=== PATIENT | female | born 1945 | race African-American/Black ===

== ENCOUNTER 2017-04-21 15:03 | Outpatient (CLI) | payer MEDICARE, MEDICAID | END 2017-04-21 15:04 | disposition home or self-care (01) | LOC: BICMAMMO 15:03 | PROVIDERS: ATTEND Internal Medicine | DX: Z12.31 Encounter for screening mammogram for malignant neoplasm of breast (principal); R92.1 Mammographic calcification found on diagnostic imaging of breast | CPT/HCPCS: 77063; 77067 ==

== ENCOUNTER 2017-10-04 13:17 | Emergency (ER) | payer MEDICARE, MEDICAID | END 2017-10-04 14:45 | disposition home or self-care (01) | LOC: ERS 13:17 | DX: T63.481A Toxic effect of venom of other arthropod, accidental (unintentional), initial encounter (principal); E11.9 Type 2 diabetes mellitus without complications; E78.5 Hyperlipidemia, unspecified; I10 Essential (primary) hypertension | CPT/HCPCS: 99282 ==

== ENCOUNTER 2017-12-11 13:49 | Outpatient (CLI) | payer MEDICARE, MEDICAID ==
--- NOTE | 2017-12-11 15:49 | RAD ---
LEFT HIP 2 VIEWS: HISTORY: Hip pain. COMPARISON: Comparison is made to hip films of 05/19/2015. FINDINGS: There are mild degenerative changes present which appear stable from prior exam. There is no evidenc e of acute fracture. No interval change from prior study. 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 No fracture or acute abnormality. POS: [facility]
== END 2017-12-11 13:50 | disposition home or self-care (01) ==
LOC: RAD-FRANK 13:49
PROVIDERS: ATTEND Nurse Practitioner Family
DX: M25.552 Pain in left hip (principal); M16.12 Unilateral primary osteoarthritis, left hip

== ENCOUNTER 2018-03-22 10:19 | Outpatient (CLI) | payer MEDICARE, MEDICAID ==
--- NOTE | 2018-03-22 10:58 | ULT ---
PELVIC ULTRASOUND: History: Pelvic pain. FINDINGS: Real-time imaging of the pelvis was obtained transabdominally. The patient refused an endovaginal exa m. The uterus appears to have been removed. I do not see either right or left ovary. No free fluid or ma ss. IMPRESSION: Post op hysterectomy change. POS: [facility]
== END 2018-03-22 10:20 | disposition home or self-care (01) ==
LOC: BICULT 10:19
PROVIDERS: ATTEND Nurse Practitioner Family
DX: R10.2 Pelvic and perineal pain (principal); Z90.710 Acquired absence of both cervix and uterus
CPT/HCPCS: 76857

== ENCOUNTER 2018-03-29 13:41 | Outpatient (CLI) | payer MEDICARE, MEDICAID ==
--- NOTE | 2018-03-29 14:21 | RAD ---
LEFT LEG TWO VIEWS: History: Left leg pain. FINDINGS/IMPRESSION: The left tibia and fibula are intact. There are degenerative changes in the left knee joint. There ar e plantar calcaneal spurs present. Vascular calcifications are present. POS: [facility]
--- NOTE | 2018-03-29 14:24 | RAD ---
LEFT ANKLE THREE VIEWS: History: Left ankle pain. FINDINGS/IMPRESSION: The ankle mortise is maintained. No fracture, dislocation, or bony destruction is seen. There is a sm all plantar calcaneal spur. POS: [facility]
== END 2018-03-29 13:42 | disposition home or self-care (01) ==
LOC: RAD-FRANK 13:41
PROVIDERS: ATTEND Nurse Practitioner Family
DX: E11.65 Type 2 diabetes mellitus with hyperglycemia (principal); L03.818 Cellulitis of other sites; M79.605 Pain in left leg; M77.32 Calcaneal spur, left foot; M17.12 Unilateral primary osteoarthritis, left knee
CPT/HCPCS: 36415; 80053; 85025

== ENCOUNTER 2018-04-01 08:25 | Emergency (ER) | payer MEDICARE, MEDICAID ==
[2018-04-01 09:03] LABS: Bilirubin Negative (Negative); Blood, Urine Negative (Negative); Clarity CLEAR (Clear); Glucose, Urine (Dipstick) Negative (Negative); Leukocyte Negative (Negative); Nitrite Negative (Negative); Protein, Urine (Dipstick) Negative (Neg-Trace); Specific Gravity, Urine 1.012 (1.002-1.036)
== END 2018-04-01 09:46 | disposition home or self-care (01) ==
LOC: ERS 08:25
DX: M54.6 Pain in thoracic spine (principal); E11.9 Type 2 diabetes mellitus without complications; I10 Essential (primary) hypertension; E78.5 Hyperlipidemia, unspecified; Z79.899 Other long term (current) drug therapy; W18.30XA Fall on same level, unspecified, initial encounter
CPT/HCPCS: 81003; 99283

== ENCOUNTER 2018-08-24 14:07 | Emergency (ER) | payer MEDICARE, MEDICAID ==
--- NOTE | 2018-08-24 14:53 | RAD ---
CHEST 1 VIEW: HISTORY: Sternal cyst pain. COMPARISON: Radiograph from 2015. FINDINGS: Lungs are clear. No pneumothorax. No effusion. Multiple midline sternotomy wires with a fracture o f the craniad most wire. No acute osseous abnormality. IMPRESSION: No acute intrathoracic abnormality. POS: [facility]
[2018-08-24] MEDS ORDERED: Acetaminophen 500 MG TAB ONE ×2 (14:54→14:56)
== END 2018-08-24 14:59 | disposition home or self-care (01) ==
LOC: ERS 14:07
DX: S20.211A Contusion of right front wall of thorax, initial encounter (principal); I10 Essential (primary) hypertension; E11.9 Type 2 diabetes mellitus without complications; E78.5 Hyperlipidemia, unspecified; W18.30XA Fall on same level, unspecified, initial encounter; Z79.899 Other long term (current) drug therapy; Z79.01 Long term (current) use of anticoagulants; Z79.82 Long term (current) use of aspirin
CPT/HCPCS: 71045

== ENCOUNTER 2018-11-30 16:18 | Emergency (ER) | payer OTHER, MEDICARE, MEDICAID ==
[2018-11-30] MEDS ORDERED: Diazepam 2 MG TAB PO SCH (17:00)
== END 2018-11-30 17:46 | disposition home or self-care (01) ==
LOC: ERS 16:18
DX: S16.1XXA Strain of muscle, fascia and tendon at neck level, initial encounter (principal); M62.830 Muscle spasm of back; E11.9 Type 2 diabetes mellitus without complications; E78.5 Hyperlipidemia, unspecified; I10 Essential (primary) hypertension; Z79.899 Other long term (current) drug therapy; Z79.82 Long term (current) use of aspirin; X50.9XXA Other and unspecified overexertion or strenuous movements or postures, initial encounter
CPT/HCPCS: 99283

== ENCOUNTER 2018-12-25 13:43 | Outpatient (CLI) | payer MEDICARE, MEDICAID ==
--- NOTE | 2018-12-25 14:30 | MMO ---
Bilateral MAMMO Bilat Screen [facility]. CLINICAL HISTORY: Patient is 73 years old and is seen for screening. The patient has no family history of breast cancer. The patient has no personal history of cancer. VIEWS: The views performed were: bilateral craniocaudal with tomosynthesis and bilateral mediolateral oblique with tomosynthesis. FILMS COMPARED: The present examination has been compared to prior imaging studies performed at [facility] on 08/08/2013, 09/03/2014, 10/06/2014 and 04/21/2017. This study has been interpreted with the assistance of computer-aided detection. MAMMOGRAM FINDINGS: There are scattered fibroglandular densities. There are stable benign appearing calcifications seen in both breasts. There are also vascular calcifications. There are no suspicious masses, suspicious calcifications, or new areas of architectural distortion. IMPRESSION: THERE IS NO MAMMOGRAPHIC EVIDENCE OF MALIGNANCY. A ROUTINE FOLLOW-UP MAMMOGRAM IN 1 YEAR IS RECOMMENDED. THE RESULTS OF THIS EXAM WERE SENT TO THE PATIENT. ACR BI-RADS Category 2 - Benign finding MAMMOGRAPHY NOTE: 1. A negative mammogram report should not delay a biopsy if a dominant of clinically suspicious mass is present. 2. Approximately 10% to 15% of breast cancers are not detected by mammography. 3. Adenosis and dense breasts may obscure an underlying neoplasm. Reported by: WILLIAM MEZA MD Electonically Signed: [id number]
== END 2018-12-25 13:44 | disposition home or self-care (01) ==
LOC: BICMAMMO 13:43
PROVIDERS: ATTEND Nurse Practitioner Family
DX: Z12.31 Encounter for screening mammogram for malignant neoplasm of breast (principal)
CPT/HCPCS: 77063; 77067

== ENCOUNTER 2020-02-11 13:50 | Outpatient (CLI) | payer MEDICARE, MEDICAID ==
--- NOTE | 2020-02-11 14:35 | BD ---
DEXA BONE DENSITY SCAN: DATE: 02/11/2020. COMPARISON: None. HISTORY: Postmenopausal female undergoing screening for osteoporosis. Lumbar Spine: BMD (g/cm2) L1 0.902 T-Score: -0.8 L2 0.921 T-Score: -1.0 L3 1.156 T-Score: 0.7 L4 1.064 T-Score: 0.0 L1-L4 1.013 T-Score: -0.3 Femoral Neck: 0.754 T-Score: -0.9 Total Femur: 0.892 T-Score: -0.4. FRAX-WHO fracture risk assessment tool is not reported as all T-scores are at or above -1.0 IMPRESSION: Normal bone mineral density exam. Transcribed Date/Time: 02/11/2020 2:48 PM
--- NOTE | 2020-02-11 15:16 | MMO ---
Bilateral MAMMO Bilat Screen [facility]. CLINICAL HISTORY: Patient is 74 years old and is seen for screening. The patient has no family history of breast cancer. The patient has no personal history of cancer. VIEWS: The views performed were: bilateral craniocaudal with tomosynthesis and bilateral mediolateral oblique with tomosynthesis. FILMS COMPARED: The present examination has been compared to prior imaging studies performed at [facility] on 09/03/2014, 10/06/2014, 04/21/2017 and 12/25/2018. This study has been interpreted with the assistance of computer-aided detection. MAMMOGRAM FINDINGS: There are scattered fibroglandular densities. There are stable calcifications seen in both breasts. There are no suspicious masses, suspicious calcifications, or new areas of architectural distortion. IMPRESSION: THERE IS NO MAMMOGRAPHIC EVIDENCE OF MALIGNANCY. A ROUTINE FOLLOW-UP MAMMOGRAM IN 1 YEAR IS RECOMMENDED. THE RESULTS OF THIS EXAM WERE SENT TO THE PATIENT. ACR BI-RADS Category 2 - Benign finding MAMMOGRAPHY NOTE: 1. A negative mammogram report should not delay a biopsy if a dominant of clinically suspicious mass is present. 2. Approximately 10% to 15% of breast cancers are not detected by mammography. 3. Adenosis and dense breasts may obscure an underlying neoplasm. Reported by: BERNY PEREZ MD Electonically Signed: [id number]
== END 2020-02-11 13:51 | disposition home or self-care (01) ==
LOC: BICMAMMO 13:50
PROVIDERS: ATTEND Nurse Practitioner Family
DX: Z12.31 Encounter for screening mammogram for malignant neoplasm of breast (principal); Z13.820 Encounter for screening for osteoporosis; Z78.0 Asymptomatic menopausal state; M85.88 Other specified disorders of bone density and structure, other site
CPT/HCPCS: 77063; 77067; 77080

== ENCOUNTER 2020-05-14 10:50 | Outpatient (CLI) | payer MEDICARE, MEDICAID | END 2020-05-14 10:51 | disposition home or self-care (01) | LOC: RAD-FRANK 10:50 | PROVIDERS: ATTEND Nurse Practitioner Family | DX: M25.551 Pain in right hip (principal); R10.2 Pelvic and perineal pain; M16.11 Unilateral primary osteoarthritis, right hip | CPT/HCPCS: 72170 ==

== ENCOUNTER 2020-10-02 14:49 | Outpatient (CLI) | payer MEDICARE, MEDICAID | END 2020-10-02 14:50 | disposition home or self-care (01) | LOC: BICCT 14:49 | PROVIDERS: ATTEND Nurse Practitioner Family | DX: E11.22 Type 2 diabetes mellitus with diabetic chronic kidney disease (principal); R10.2 Pelvic and perineal pain; E78.5 Hyperlipidemia, unspecified; W19.XXXA Unspecified fall, initial encounter; Z79.4 Long term (current) use of insulin | CPT/HCPCS: 72192 ==

== ENCOUNTER 2021-01-26 14:11 | Outpatient (CLI) | payer MEDICARE, MEDICAID | END 2021-01-26 14:12 | disposition home or self-care (01) | LOC: BICRAD 14:11 | PROVIDERS: ATTEND Nurse Practitioner Family | DX: M25.562 Pain in left knee (principal); M25.552 Pain in left hip; I12.9 Hypertensive chronic kidney disease with stage 1 through stage 4 chronic kidney disease, or unspecified chronic kidney disease; E11.22 Type 2 diabetes mellitus with diabetic chronic kidney disease; N18.9 Chronic kidney disease, unspecified; M51.16 Intervertebral disc disorders with radiculopathy, lumbar region; M53.9 Dorsopathy, unspecified; E78.5 Hyperlipidemia, unspecified; M16.12 Unilateral primary osteoarthritis, left hip; Z95.1 Presence of aortocoronary bypass graft; Z79.4 Long term (current) use of insulin | CPT/HCPCS: 36415; 80053; 81001; 83036; 84443; 85025; 87086 ==

== ENCOUNTER 2021-02-01 12:30 | Outpatient (CLI) | payer MEDICARE, MEDICAID | END 2021-02-01 12:31 | disposition home or self-care (01) | LOC: TBSIIMAG 12:30 | PROVIDERS: ATTEND Nurse Practitioner Family | DX: M51.16 Intervertebral disc disorders with radiculopathy, lumbar region (principal); M53.9 Dorsopathy, unspecified; M25.552 Pain in left hip; M48.061 Spinal stenosis, lumbar region without neurogenic claudication; M43.16 Spondylolisthesis, lumbar region | CPT/HCPCS: 72148 ==

== ENCOUNTER 2021-02-14 05:52 | Inpatient (IN) | payer MEDICARE, MEDICAID ==
[2021-02-14] MEDS ORDERED: Fentanyl 100 MCG/2 ML VIAL ONE (07:00)
[2021-02-14 07:31] LABS: #Lymphocytes 1.9 thou/uL (1.20-3.40); #Monocytes 0.6 thou/uL (0.11-0.59); #Neutrophils 5.9 thou/uL (1.40-6.50); %Basophils 0.4 % (0.0-1.0); %Eosinophils 0.5 % (0.0-10.0); %Monocytes 6.7 % (0.0-10.0); %Neutrophils 69.4 % (42.0-75.0); Hemoglobin 10.7 g/dL (12.0-16.0); Mean Corpuscular HGB CONC 33.8 g/dL (32.0-36.0); Mean Corpuscular Hemoglobin 29.4 pg (27.0-31.0); Mean Platelet Volume 8.2 fL (7.4-10.4); Platelet Count 219 thou/uL (130-400); RBC Distribution Width 13.3 % (11.5-14.5); Red Blood Cell (RBC) Count 3.64 mill/uL (4.20-5.40); White Blood Cell (WBC) Count 8.4 thou/uL (4.8-10.8)
[2021-02-14 07:51] LABS: ALT (SGPT) 9 U/L (8-55); AST (SGOT) 12 U/L (5-34); Albumin 3.8 g/dL (3.4-4.8); Alkaline Phosphatase 78 U/L (40-110); Anion Gap 11 mmol/L (10-20); BUN (Urea Nitrogen) 20 mg/dL (9.8-20.1); Bilirubin, Total 0.4 mg/dL (0.2-1.2); Calc. Creatinine Clearance 0 mL/min (70-130); Carbon Dioxide 22 mmol/L (23-31); Chloride 107 mmol/L (98-107); Globulin 3.8 g/dL (2.4-3.5); Glucose 198 mg/dL (83-110); Protein, Total 7.6 g/dL (5.8-8.1); Sodium 136 mmol/L (136-145)
[2021-02-14] MEDS ORDERED: Ondansetron PF 4 MG/2 ML Vial IVP PRN ×2 (09:30→09:35)
[2021-02-14] MEDS ORDERED: Ondansetron ODT 4 MG TAB PO PRN ×2 (09:30→09:35)
[2021-02-14] MEDS ORDERED: Dextrose 5% in Water 1,000 ML IV PRN (09:34)
[2021-02-14] MEDS ORDERED: Dextrose 50% Abboject 50 ML SYRINGE SLOW IVP PRN (09:34)
[2021-02-14] MEDS ORDERED: Acetaminophen 325 MG TAB PO PRN (09:35)
[2021-02-14] MEDS ORDERED: Senokot S 8.6-50 MG TAB PO PRN (09:35)
[2021-02-14] MEDS ORDERED: Calcium Carbonate 500 MG ChewTAB PO PRN (09:35)
[2021-02-14] MEDS ORDERED: Sodium Chloride 0.9% 1,000 ML IV SCH ×2 (09:45→11:15)
[2021-02-14 10:56] VITALS: BMI 28.7
[2021-02-14] MEDS ORDERED: Vancomycin 1 GM in Premix Bag 1 BAG IVPB SCH (11:00)
[2021-02-14] MEDS ORDERED: Piperacillin/Tazobactam 3.375 GM in Sodium Chloride 0.9% 100 ML IVPB SCH ×2 (11:00→12:00)
[2021-02-14] MEDS ORDERED: HYDROcodone/Acetaminophen 5/325 mg Tablet PO PRN (11:13)
[2021-02-14] MEDS ORDERED: NPH, Human Insulin Isophane 300 UNIT/3 ML VIAL SC SCH ×2 (11:30→17:00)
[2021-02-14] MEDS: Sodium Chloride 0.9% 1,000 ML IV SCH (12:00)
[2021-02-14] MEDS: Acetaminophen 325 MG TAB PO SCH ×3 (12:04→20:25)
[2021-02-14] MEDS: Insulin Regular 300 UNITS/3 ML VIAL SC PRN ×3 (12:21→20:35)
[2021-02-14] MEDS: Vancomycin 1 GM in Premix Bag 1 BAG IVPB SCH (15:16)
[2021-02-14] MEDS: Piperacillin/Tazobactam 3.375 GM in Sodium Chloride 0.9% 100 ML IVPB SCH (18:04)
[2021-02-14] MEDS: Famotidine 20 MG TAB PO SCH (20:25)
[2021-02-14] MEDS: Rosuvastatin 10 MG TAB PO SCH (20:26)
[2021-02-14] MEDS: Lisinopril 20 MG TAB PO SCH (20:26)
[2021-02-14] MEDS: Carvedilol 25 MG TAB PO SCH (20:26)
[2021-02-14] MEDS: cloNIDine 0.1 MG TAB PO SCH (20:26)
[2021-02-14 23:06] LABS: SARS-CoV-2 PCR by NAA DETECTED (NotDetected)
[2021-02-15] MEDS: Piperacillin/Tazobactam 3.375 GM in Sodium Chloride 0.9% 100 ML IVPB SCH ×4 (00:08→23:23)
[2021-02-15 06:10] LABS: #Basophils 0.1 thou/uL (0.0-0.2); #Eosinphils 0.1 thou/uL (0.0-0.7); #Lymphocytes 2.1 thou/uL (1.20-3.40); #Monocytes 0.7 thou/uL (0.11-0.59); #Neutrophils 2.9 thou/uL (1.40-6.50); %Basophils 1.2 % (0.0-1.0); %Eosinophils 1.3 % (0.0-10.0); %Monocytes 12.5 % (0.0-10.0); Hemoglobin 9.6 g/dL (12.0-16.0); Mean Corpuscular HGB CONC 33.7 g/dL (32.0-36.0); Mean Corpuscular Hemoglobin 29.5 pg (27.0-31.0); Mean Corpuscular Volume 87.7 fL (78.0-98.0); Mean Platelet Volume 8.2 fL (7.4-10.4); Platelet Count 199 thou/uL (130-400); RBC Distribution Width 13.2 % (11.5-14.5); Red Blood Cell (RBC) Count 3.25 mill/uL (4.20-5.40); White Blood Cell (WBC) Count 5.8 thou/uL (4.8-10.8)
[2021-02-15 06:38] LABS: Anion Gap 9 mmol/L (10-20); BUN (Urea Nitrogen) 27 mg/dL (9.8-20.1); Calc. Creatinine Clearance 36 mL/min (70-130); Calcium 9.3 mg/dL (7.8-10.44); Carbon Dioxide 24 mmol/L (23-31); Chloride 109 mmol/L (98-107); Glucose 108 mg/dL (83-110); Potassium 3.7 mmol/L (3.5-5.1); Sodium 138 mmol/L (136-145)
[2021-02-15] MEDS: Famotidine 20 MG TAB PO SCH (08:25)
[2021-02-15] MEDS: Carvedilol 25 MG TAB PO SCH ×2 (08:25→20:55)
[2021-02-15] MEDS: Amlodipine 5 MG TAB PO SCH (08:25)
[2021-02-15] MEDS: Lisinopril 20 MG TAB PO SCH ×2 (08:25→20:55)
[2021-02-15] MEDS: Potassium Chloride 10 MEQ TAB PO SCH (08:25)
[2021-02-15] MEDS: Acetaminophen 325 MG TAB PO SCH ×4 (08:26→20:55)
[2021-02-15] MEDS: Aspirin 325 mg Enteric Coated Tablet PO SCH (08:26)
[2021-02-15] MEDS: NPH, Human Insulin Isophane 300 UNIT/3 ML VIAL SC SCH (08:27)
[2021-02-15] MEDS: Sodium Chloride 0.9% 1,000 ML IV SCH ×2 (08:29→19:12)
[2021-02-15] MEDS: Vancomycin 1 GM in Premix Bag 1 BAG IVPB SCH (12:45)
[2021-02-15] MEDS: Ketorolac Tromethamine 30 MG/ML VIAL IVP SCH ×2 (18:15→23:23)
[2021-02-15] MEDS: Rosuvastatin 10 MG TAB PO SCH (20:54)
[2021-02-15] MEDS: cloNIDine 0.1 MG TAB PO SCH (20:55)
[2021-02-15] MEDS: Insulin Regular 300 UNITS/3 ML VIAL SC PRN (20:56)
[2021-02-15] MEDS ORDERED: Colchicine 0.3 MG TAB PO SCH (21:45)
[2021-02-16] MEDS: Ketorolac Tromethamine 30 MG/ML VIAL IVP SCH ×3 (05:50→17:11)
[2021-02-16 06:52] LABS: #Eosinphils 0.1 thou/uL (0.0-0.7); #Lymphocytes 1.8 thou/uL (1.20-3.40); #Monocytes 0.6 thou/uL (0.11-0.59); #Neutrophils 2.2 thou/uL (1.40-6.50); %Basophils 0.8 % (0.0-1.0); %Lymphocytes 38.6 % (21.0-51.0); %Monocytes 12.6 % (0.0-10.0); Hemoglobin 9.2 g/dL (12.0-16.0); Mean Corpuscular HGB CONC 32.1 g/dL (32.0-36.0); Mean Corpuscular Hemoglobin 28.3 pg (27.0-31.0); Mean Corpuscular Volume 88.1 fL (78.0-98.0); Mean Platelet Volume 8.4 fL (7.4-10.4); Platelet Count 183 thou/uL (130-400); RBC Distribution Width 13.2 % (11.5-14.5); Red Blood Cell (RBC) Count 3.24 mill/uL (4.20-5.40); White Blood Cell (WBC) Count 4.7 thou/uL (4.8-10.8)
[2021-02-16 07:06] LABS: Anion Gap 10 mmol/L (10-20); BUN (Urea Nitrogen) 26 mg/dL (9.8-20.1); Calc. Creatinine Clearance 38 mL/min (70-130); Calcium 8.9 mg/dL (7.8-10.44); Carbon Dioxide 21 mmol/L (23-31); Chloride 112 mmol/L (98-107); Glucose 114 mg/dL (83-110); Potassium 3.9 mmol/L (3.5-5.1); Sodium 139 mmol/L (136-145)
[2021-02-16] MEDS: Piperacillin/Tazobactam 3.375 GM in Sodium Chloride 0.9% 100 ML IVPB SCH ×2 (08:37→17:12)
[2021-02-16] MEDS: Carvedilol 25 MG TAB PO SCH ×2 (08:38→21:17)
[2021-02-16] MEDS: Aspirin 325 mg Enteric Coated Tablet PO SCH (08:38)
[2021-02-16] MEDS: Lisinopril 20 MG TAB PO SCH ×2 (08:38→21:17)
[2021-02-16] MEDS: Amlodipine 5 MG TAB PO SCH (08:38)
[2021-02-16] MEDS: Acetaminophen 325 MG TAB PO SCH ×4 (08:39→21:17)
[2021-02-16] MEDS: Colchicine 0.3 MG TAB PO SCH ×2 (08:39→21:17)
[2021-02-16] MEDS: Potassium Chloride 10 MEQ TAB PO SCH (08:39)
[2021-02-16] MEDS: Famotidine 20 MG TAB PO SCH (08:39)
[2021-02-16] MEDS: NPH, Human Insulin Isophane 300 UNIT/3 ML VIAL SC SCH (08:41)
[2021-02-16] MEDS: Insulin Regular 300 UNITS/3 ML VIAL SC PRN (11:56)
[2021-02-16 12:58] LABS: Vancomycin, Trough 11.4 ug/mL
[2021-02-16] MEDS: Vancomycin 1 GM in Premix Bag 1 BAG IVPB SCH (13:37)
[2021-02-16] MEDS ORDERED: VANCOMYCIN 1.25 GM/250 ML BAG 1.25 GM in Premix Bag 1 BAG IVPB SCH (14:00)
[2021-02-16] MEDS: cloNIDine 0.1 MG TAB PO SCH (21:16)
[2021-02-16] MEDS: Rosuvastatin 10 MG TAB PO SCH (21:17)
[2021-02-17] MEDS: Piperacillin/Tazobactam 3.375 GM in Sodium Chloride 0.9% 100 ML IVPB SCH ×2 (00:01→09:03)
[2021-02-17] MEDS: Ketorolac Tromethamine 30 MG/ML VIAL IVP SCH ×3 (00:02→12:11)
[2021-02-17] MEDS ORDERED: Loperamide HCl 2 MG CAP PO PRN (08:50)
[2021-02-17] MEDS: Acetaminophen 325 MG TAB PO SCH ×2 (09:09→12:11)
[2021-02-17] MEDS: Amlodipine 5 MG TAB PO SCH (09:09)
[2021-02-17] MEDS: Carvedilol 25 MG TAB PO SCH (09:10)
[2021-02-17] MEDS: Lisinopril 20 MG TAB PO SCH (09:10)
[2021-02-17] MEDS: Aspirin 325 mg Enteric Coated Tablet PO SCH (09:10)
[2021-02-17] MEDS: Famotidine 20 MG TAB PO SCH (09:10)
[2021-02-17] MEDS: NPH, Human Insulin Isophane 300 UNIT/3 ML VIAL SC SCH (09:11)
[2021-02-17] MEDS: Potassium Chloride 10 MEQ TAB PO SCH (09:11)
[2021-02-17 09:18] VITALS: BP 146/73
[2021-02-17 09:23] VITALS: TEMP 98.1
[2021-02-17] MEDS: Colchicine 0.3 MG TAB PO SCH (09:29)
== END 2021-02-17 12:23 | disposition home or self-care (01) | DRG 557 ==
LOC: ERS 05:52 → T4-A 09:19 → OBSVTOIN 02-15 16:54
PROVIDERS: ADMIT Internal Medicine; ATTEND Family Medicine
PROC: 0R9N3ZZ Drainage of Right Wrist Joint, Percutaneous Approach (ICD-10-PCS; principal; 2021-02-15)
DX: M65.821 Other synovitis and tenosynovitis, right upper arm (principal); U07.1 COVID-19; N17.9 Acute kidney failure, unspecified; E78.00 Pure hypercholesterolemia, unspecified; M17.12 Unilateral primary osteoarthritis, left knee; D63.1 Anemia in chronic kidney disease; E11.22 Type 2 diabetes mellitus with diabetic chronic kidney disease; I12.9 Hypertensive chronic kidney disease with stage 1 through stage 4 chronic kidney disease, or unspecified chronic kidney disease; E78.5 Hyperlipidemia, unspecified; I25.10 Atherosclerotic heart disease of native coronary artery without angina pectoris; N18.30 Chronic kidney disease, stage 3 unspecified; Z90.710 Acquired absence of both cervix and uterus; Z80.1 Family history of malignant neoplasm of trachea, bronchus and lung; Z83.3 Family history of diabetes mellitus; Z79.82 Long term (current) use of aspirin; Z79.4 Long term (current) use of insulin; Z79.52 Long term (current) use of systemic steroids; Z79.899 Other long term (current) drug therapy; Z95.1 Presence of aortocoronary bypass graft
CPT/HCPCS: 36415; 36416; 76999; 80048; 80053; 80202; 84550; 85025; 85652; 86140; 87040; 94760; 96374; 96375; 96376; G0378; J1815; J1885; J2543; J3010; J3370; J3490; J7050; Q0162; U0003; U0005

== ENCOUNTER 2021-10-08 12:40 | Observation (INO) | payer MEDICARE, MEDICAID ==
[2021-10-08 13:14] LABS: #Eosinphils 0.1 thou/uL (0.0-0.7); #Lymphocytes 2.3 thou/uL (1.20-3.40); #Monocytes 0.5 thou/uL (0.11-0.59); #Neutrophils 3.8 thou/uL (1.40-6.50); %Basophils 0.4 % (0.0-1.0); %Eosinophils 1.1 % (0.0-10.0); %Lymphocytes 33.9 % (21.0-51.0); %Monocytes 7.2 % (0.0-10.0); %Neutrophils 57.4 % (42.0-75.0); Hemoglobin 12.1 g/dL (12.0-16.0); Mean Corpuscular HGB CONC 32.2 g/dL (32.0-36.0); Mean Corpuscular Hemoglobin 28.3 pg (27.0-31.0); Platelet Count 222 thou/uL (130-400); RBC Distribution Width 13.7 % (11.5-14.5); Red Blood Cell (RBC) Count 4.28 mill/uL (4.20-5.40); White Blood Cell (WBC) Count 6.6 thou/uL (4.8-10.8)
[2021-10-08 13:34] LABS: ALT (SGPT) 15 U/L (8-55); AST (SGOT) 24 U/L (5-34); Albumin 4.2 g/dL (3.4-4.8); Alkaline Phosphatase 75 U/L (40-110); Anion Gap 17 mmol/L (10-20); BUN (Urea Nitrogen) 22 mg/dL (9.8-20.1); Bilirubin, Total 0.5 mg/dL (0.2-1.2); Calc. Creatinine Clearance 0 mL/min (70-130); Calcium 9.8 mg/dL (7.8-10.44); Carbon Dioxide 23 mmol/L (23-31); Chloride 104 mmol/L (98-107); Estimated GFR 35; Globulin 3.8 g/dL (2.4-3.5); Glucose 204 mg/dL (83-110); Lipase 52 U/L (8-78); Potassium 4.6 mmol/L (3.5-5.1); Sodium 139 mmol/L (136-145)
[2021-10-08] MEDS ORDERED: Aspirin Chewable 81 MG TAB ONE (14:06)
[2021-10-08] MEDS ORDERED: Nitroglycerin 0.4 MG TAB (25 Tab Bottle) SL PRN (17:14)
[2021-10-08] MEDS ORDERED: Acetaminophen 325 MG TAB PO PRN (17:14)
[2021-10-08] MEDS ORDERED: Ondansetron ODT 4 MG TAB PO PRN (17:14)
[2021-10-08] MEDS ORDERED: Acetaminophen 650 MG Suppository PR PRN (17:14)
[2021-10-08] MEDS ORDERED: Ondansetron PF 4 MG/2 ML Vial IVP PRN (17:14)
[2021-10-08] MEDS ORDERED: Insulin Regular 300 UNITS/3 ML VIAL SC PRN ×2 (17:20)
[2021-10-08] MEDS ORDERED: Dextrose 50% Abboject 50 ML SYRINGE SLOW IVP PRN (17:20)
[2021-10-08] MEDS ORDERED: Dextrose 5% in Water 1,000 ML IV PRN (17:20)
[2021-10-08 17:22] LABS: Troponin I Less than 0.010 ng/mL (< 0.028)
[2021-10-08 18:27] VITALS: BMI 29.4
[2021-10-08] MEDS: Lisinopril 20 MG TAB PO SCH (20:13)
[2021-10-08] MEDS: Carvedilol 25 MG TAB PO SCH (20:13)
[2021-10-08 20:49] LABS: Troponin I Less than 0.010 ng/mL (< 0.028)
[2021-10-08] MEDS ORDERED: HumuLIN 70/30 (300 UNITS/3 ML VIAL) SC SCH (21:00)
[2021-10-08] MEDS ORDERED: Rosuvastatin 20 MG TAB PO SCH (21:00)
[2021-10-09 05:26] LABS: #Eosinphils 0.1 thou/uL (0.0-0.7); #Lymphocytes 2.4 thou/uL (1.20-3.40); #Monocytes 0.5 thou/uL (0.11-0.59); #Neutrophils 2.7 thou/uL (1.40-6.50); %Eosinophils 2.5 % (0.0-10.0); %Lymphocytes 42.1 % (21.0-51.0); %Monocytes 9.2 % (0.0-10.0); %Neutrophils 46.2 % (42.0-75.0); Hemoglobin 11.3 g/dL (12.0-16.0); Mean Corpuscular HGB CONC 32.9 g/dL (32.0-36.0); Mean Corpuscular Volume 88.3 fL (78.0-98.0); Mean Platelet Volume 8.4 fL (7.4-10.4); Platelet Count 202 thou/uL (130-400); RBC Distribution Width 13.7 % (11.5-14.5); Red Blood Cell (RBC) Count 3.88 mill/uL (4.20-5.40); White Blood Cell (WBC) Count 5.8 thou/uL (4.8-10.8)
[2021-10-09 05:38] LABS: Anion Gap 14 mmol/L (10-20); BUN (Urea Nitrogen) 24 mg/dL (9.8-20.1); Calc. Creatinine Clearance 43 mL/min (70-130); Calcium 9.6 mg/dL (7.8-10.44); Carbon Dioxide 24 mmol/L (23-31); Cardiac Risk 3.5 (Less than 4.5); Chloride 107 mmol/L (98-107); Cholesterol 119 mg/dl (< 200 Desired); Estimated GFR 40; Glucose 172 mg/dL (83-110); HDL Cholesterol 34 mg/dL (>60 Neg Risk); LDL Cholesterol, Calculated 61 mg/dL; Potassium 3.8 mmol/L (3.5-5.1); Sodium 141 mmol/L (136-145); Triglycerides 121 mg/dL (Less than 150)
[2021-10-09] MEDS ORDERED: ADENOSINE 60 MG/20 ML VIAL ONE (08:31)
[2021-10-09] MEDS ORDERED: HumuLIN 70/30 (300 UNITS/3 ML VIAL) SC SCH ×2 (09:00→17:30)
[2021-10-09] MEDS ORDERED: Aspirin 325 mg Enteric Coated Tablet PO SCH (09:00)
[2021-10-09] MEDS ORDERED: Amlodipine 5 MG TAB PO SCH (09:00)
[2021-10-09] MEDS ORDERED: Aspirin Chewable 81 MG TAB PO SCH (09:00)
[2021-10-09] MEDS: Lisinopril 20 MG TAB PO SCH (09:18)
[2021-10-09 11:52] VITALS: BP 141/68; TEMP 97.6
[2021-10-09] MEDS: Carvedilol 25 MG TAB PO SCH (17:58)
== END 2021-10-09 17:50 | disposition home or self-care (01) ==
LOC: ERS 12:40 → 2SW 18:05
PROVIDERS: ADMIT Internal Medicine; ATTEND Internal Medicine
DX: R07.89 Other chest pain (principal); Z20.822 Contact with and (suspected) exposure to COVID-19; I12.9 Hypertensive chronic kidney disease with stage 1 through stage 4 chronic kidney disease, or unspecified chronic kidney disease; E11.22 Type 2 diabetes mellitus with diabetic chronic kidney disease; N18.9 Chronic kidney disease, unspecified; I25.10 Atherosclerotic heart disease of native coronary artery without angina pectoris; E11.9 Type 2 diabetes mellitus without complications; E78.5 Hyperlipidemia, unspecified; Z79.4 Long term (current) use of insulin; Z79.82 Long term (current) use of aspirin; Z79.899 Other long term (current) drug therapy; Z95.1 Presence of aortocoronary bypass graft
CPT/HCPCS: 71045; 78452; 80048; 80053; 80061; 82962 ×2; 83690; 84484 ×2; 85025 ×2; 93005; 93017; 94760; 99285; A9500; G0378 ×3; U0003; U0005; 36415; 36416; J0153; J1815

== ENCOUNTER 2021-11-03 07:59 | Emergency (ER) | payer MEDICARE, MEDICAID ==
[2021-11-03] MEDS ORDERED: Amlodipine 5 MG TAB ONE (08:35)
[2021-11-03] MEDS ORDERED: Insulin Regular 300 UNITS/3 ML VIAL ONE (08:37)
[2021-11-03 10:49] LABS: Bacteria/HPF None Seen HPF (None Seen); Bilirubin Negative (Negative); Blood, Urine Trace (Negative); Clarity Clear (Clear); Glucose, Urine (Dipstick) Normal (Negative); Ketone, Urine Negative (Negative); Leukocyte Negative Leu/uL (Negative); Nitrite Negative (Negative); Protein, Urine (Dipstick) 50 mg/dL (Neg-Trace); RBC/HPF 0-3 HPF (0-3); Specific Gravity, Urine 1.009 (1.002-1.036); Squamous Epithelial None Seen HPF (0-3); Urobilinogen Normal mg/dL (Less than 2); pH, Urine 6.5 (5.0-9.0)
[2021-11-03 13:10] LABS: #Lymphocytes 2.1 thou/uL (1.20-3.40); #Monocytes 0.5 thou/uL (0.11-0.59); #Neutrophils 4.2 thou/uL (1.40-6.50); %Basophils 0.3 % (0.0-1.0); %Eosinophils 0.6 % (0.0-10.0); %Lymphocytes 31.2 % (21.0-51.0); %Monocytes 6.5 % (0.0-10.0); %Neutrophils 61.3 % (42.0-75.0); Hemoglobin 11.9 g/dL (12.0-16.0); Mean Corpuscular HGB CONC 32.1 g/dL (32.0-36.0); Mean Corpuscular Hemoglobin 28.5 pg (27.0-31.0); Mean Corpuscular Volume 88.8 fL (78.0-98.0); Mean Platelet Volume 8.6 fL (7.4-10.4); Platelet Count 191 thou/uL (130-400); RBC Distribution Width 13.8 % (11.5-14.5); Red Blood Cell (RBC) Count 4.18 mill/uL (4.20-5.40); White Blood Cell (WBC) Count 6.9 thou/uL (4.8-10.8)
[2021-11-03] MEDS ORDERED: Carvedilol 25 MG TAB PO SCH (13:30)
[2021-11-03 13:32] LABS: ALT (SGPT) 11 U/L (8-55); AST (SGOT) 17 U/L (5-34); Albumin 3.9 g/dL (3.4-4.8); Alkaline Phosphatase 82 U/L (40-110); Anion Gap 13 mmol/L (10-20); BUN (Urea Nitrogen) 20 mg/dL (9.8-20.1); Bilirubin, Total 0.4 mg/dL (0.2-1.2); Calc. Creatinine Clearance 0 mL/min (70-130); Calcium 9.8 mg/dL (7.8-10.44); Carbon Dioxide 20 mmol/L (23-31); Chloride 109 mmol/L (98-107); Estimated GFR 41; Globulin 3.7 g/dL (2.4-3.5); Glucose 224 mg/dL (83-110); Potassium 4.1 mmol/L (3.5-5.1); Protein, Total 7.6 g/dL (5.8-8.1); Sodium 138 mmol/L (136-145)
== END 2021-11-03 13:58 | disposition home or self-care (01) ==
LOC: ERS 07:59
DX: I10 Essential (primary) hypertension (principal); E11.9 Type 2 diabetes mellitus without complications; E78.5 Hyperlipidemia, unspecified; Z79.899 Other long term (current) drug therapy
CPT/HCPCS: 36415; 36416; 71045; 80053; 81003; 81015; 84484; 85025; 93005; J1815

== ENCOUNTER 2022-02-10 08:53 | Emergency (ER) | payer OTHER, MEDICAID | END 2022-02-10 10:08 | disposition home or self-care (01) | LOC: ERS 08:53 | DX: S90.414A Abrasion, right lesser toe(s), initial encounter (principal); E11.9 Type 2 diabetes mellitus without complications; I10 Essential (primary) hypertension; E78.5 Hyperlipidemia, unspecified; Z79.4 Long term (current) use of insulin; Z79.82 Long term (current) use of aspirin; Z79.899 Other long term (current) drug therapy; W20.8XXA Other cause of strike by thrown, projected or falling object, initial encounter ==

== ENCOUNTER 2022-03-23 04:34 | Inpatient (IN) | payer OTHER, MEDICAID ==
[2022-03-23 05:50] LABS: #Basophils 0.1 thou/uL (0.0-0.2); #Eosinphils 0.1 thou/uL (0.0-0.7); #Lymphocytes 2.5 thou/uL (1.20-3.40); #Monocytes 0.8 thou/uL (0.11-0.59); #Neutrophils 6.8 thou/uL (1.40-6.50); %Basophils 0.7 % (0.0-1.0); %Eosinophils 0.7 % (0.0-10.0); %Lymphocytes 24.2 % (21.0-51.0); %Neutrophils 66.4 % (42.0-75.0); Hemoglobin 11.7 g/dL (12.0-16.0); Mean Corpuscular HGB CONC 31.6 g/dL (32.0-36.0); Mean Corpuscular Hemoglobin 27.9 pg (27.0-31.0); Mean Corpuscular Volume 88.4 fl (78.0-98.0); Mean Platelet Volume 9.1 fL (7.4-10.4); Platelet Count 228 10x3/uL (130-400); RBC Distribution Width 13.1 % (11.5-14.5); Red Blood Cell (RBC) Count 4.18 mill/uL (4.20-5.40); White Blood Cell (WBC) Count 10.2 10x3/uL (4.8-10.8)
[2022-03-23 06:11] LABS: ALT (SGPT) 11 U/L (8-55); AST (SGOT) 12 U/L (5-34); Albumin 3.8 g/dL (3.4-4.8); Alkaline Phosphatase 74 U/L (40-110); Anion Gap 15 mmol/L (10-20); BUN (Urea Nitrogen) 96 mg/dL (9.8-20.1); Bilirubin, Total 0.3 mg/dL (0.2-1.2); Calc. Creatinine Clearance 0 mL/min (70-130); Calcium 9.4 mg/dL (7.8-10.44); Carbon Dioxide 22 mmol/L (23-31); Chloride 101 mmol/L (98-107); Estimated GFR 13; Globulin 3.6 g/dL (2.4-3.5); Glucose 179 mg/dL (83-110); Protein, Total 7.4 g/dL (5.8-8.1); Sodium 134 mmol/L (136-145)
[2022-03-23 06:44] LABS: Bacteria/HPF 2+ HPF (None Seen); Bilirubin Negative (Negative); Blood, Urine Negative (Negative); Clarity Clear (Clear); Glucose, Urine (Dipstick) Normal (Negative); Ketone, Urine Negative (Negative); Leukocyte 500 Leu/uL (Negative); Nitrite Negative (Negative); Protein, Urine (Dipstick) Negative (Neg-Trace); Specific Gravity, Urine 1.013 (1.002-1.036); Squamous Epithelial 0-3 HPF (0-3); Urobilinogen Normal mg/dL (Less than 2); WBC/HPF Greater than 50 HPF (0-3)
[2022-03-23] MEDS ORDERED: cefTRIAXone\\ROCEPHIN 1 GM VIAL ONE (07:09)
[2022-03-23] MEDS ORDERED: Dextrose 50% Abboject 50 ML SYRINGE SLOW IVP PRN (08:35)
[2022-03-23] MEDS ORDERED: Dextrose 5% in Water 1,000 ML IV PRN (08:35)
[2022-03-23 09:36] VITALS: BMI 28.6
[2022-03-23] MEDS: Sodium Chloride 0.9% 1,000 ML IV SCH (11:26)
[2022-03-23] MEDS ORDERED: HumaLOG 300 UNITS/3 ML VIAL ONE (11:27)
[2022-03-23] MEDS: HumaLOG 300 UNITS/3 ML VIAL SC PRN ×2 (11:29→17:49)
[2022-03-23] MEDS: Heparin 5,000 UNITS/ML VIAL SC SCH ×2 (11:40→21:12)
[2022-03-23] MEDS ORDERED: Rosuvastatin 10 MG TAB PO SCH (21:00)
[2022-03-23] MEDS: Rosuvastatin 20 MG TAB PO SCH (21:12)
[2022-03-24] MEDS: Sodium Chloride 0.9% 1,000 ML IV SCH ×2 (00:32→13:11)
[2022-03-24] MEDS ORDERED: HYDROcodone/Acetaminophen 5/325 mg Tablet PO PRN (01:02)
[2022-03-24] MEDS ORDERED: Acetaminophen 325 MG TAB PO PRN (01:04)
[2022-03-24 07:53] LABS: #Eosinphils 0.1 thou/uL (0.0-0.7); #Lymphocytes 2.4 thou/uL (1.20-3.40); #Monocytes 0.5 thou/uL (0.11-0.59); #Neutrophils 3.5 thou/uL (1.40-6.50); %Basophils 0.5 % (0.0-1.0); %Eosinophils 2.3 % (0.0-10.0); %Lymphocytes 36.5 % (21.0-51.0); %Monocytes 8.2 % (0.0-10.0); %Neutrophils 52.6 % (42.0-75.0); Hemoglobin 11.9 g/dL (12.0-16.0); Mean Corpuscular HGB CONC 31.5 g/dL (32.0-36.0); Mean Corpuscular Hemoglobin 28.4 pg (27.0-31.0); Mean Corpuscular Volume 90.1 fl (78.0-98.0); Mean Platelet Volume 8.8 fL (7.4-10.4); Platelet Count 213 10x3/uL (130-400); RBC Distribution Width 13.1 % (11.5-14.5); Red Blood Cell (RBC) Count 4.18 mill/uL (4.20-5.40); White Blood Cell (WBC) Count 6.6 10x3/uL (4.8-10.8)
[2022-03-24 08:06] LABS: ALT (SGPT) 15 U/L (8-55); AST (SGOT) 14 U/L (5-34); Albumin 3.6 g/dL (3.4-4.8); Alkaline Phosphatase 84 U/L (40-110); Anion Gap 15 mmol/L (10-20); BUN (Urea Nitrogen) 61 mg/dL (9.8-20.1); Bilirubin, Total 0.4 mg/dL (0.2-1.2); Calc. Creatinine Clearance 29 mL/min (70-130); Calcium 9.2 mg/dL (7.8-10.44); Carbon Dioxide 19 mmol/L (23-31); Chloride 108 mmol/L (98-107); Estimated GFR 26; Globulin 3.7 g/dL (2.4-3.5); Glucose 231 mg/dL (83-110); Potassium 4.6 mmol/L (3.5-5.1); Protein, Total 7.3 g/dL (5.8-8.1); Sodium 137 mmol/L (136-145)
[2022-03-24] MEDS ORDERED: Ondansetron PF 4 MG/2 ML Vial IVP PRN (08:15)
[2022-03-24] MEDS: Heparin 5,000 UNITS/ML VIAL SC SCH ×2 (08:45→20:36)
[2022-03-24] MEDS: cefTRIAXone\\ROCEPHIN 1 GM in Sodium Chloride 0.9% 100 ML IVPB SCH (08:45)
[2022-03-24] MEDS ORDERED: [UNRECOGNIZED DRUG - OTHER] PO SCH (09:00)
[2022-03-24] MEDS ORDERED: FOLIC ACID PO SCH (09:00)
[2022-03-24] MEDS ORDERED: MULTIVITAMIN PO SCH (09:00)
[2022-03-24] MEDS ORDERED: IRON PO SCH (09:00)
[2022-03-24] MEDS: Aspirin Chewable 81 MG TAB PO SCH (10:51)
[2022-03-24] MEDS: Multivit, Therapeutic 1 TAB PO SCH (10:51)
[2022-03-24] MEDS: HumaLOG 300 UNITS/3 ML VIAL SC PRN ×2 (13:08→20:36)
[2022-03-24] MEDS: Rosuvastatin 20 MG TAB PO SCH (20:36)
[2022-03-25] MEDS: Sodium Chloride 0.9% 1,000 ML IV SCH (04:24)
[2022-03-25 06:40] LABS: #Eosinphils 0.2 thou/uL (0.0-0.7); #Monocytes 0.6 thou/uL (0.11-0.59); #Neutrophils 4.1 thou/uL (1.40-6.50); %Basophils 0.4 % (0.0-1.0); %Eosinophils 2.5 % (0.0-10.0); %Lymphocytes 37.8 % (21.0-51.0); %Neutrophils 51.3 % (42.0-75.0); Hemoglobin 11.2 g/dL (12.0-16.0); Mean Corpuscular HGB CONC 32.8 g/dL (32.0-36.0); Mean Corpuscular Volume 88.4 fl (78.0-98.0); Mean Platelet Volume 8.9 fL (7.4-10.4); Platelet Count 197 10x3/uL (130-400); Red Blood Cell (RBC) Count 3.88 mill/uL (4.20-5.40); White Blood Cell (WBC) Count 7.9 10x3/uL (4.8-10.8)
[2022-03-25 06:59] LABS: Anion Gap 12 mmol/L (10-20); BUN (Urea Nitrogen) 35 mg/dL (9.8-20.1); Calc. Creatinine Clearance 41 mL/min (70-130); Calcium 9.3 mg/dL (7.8-10.44); Carbon Dioxide 22 mmol/L (23-31); Chloride 109 mmol/L (98-107); Estimated GFR 40; Glucose 129 mg/dL (83-110); Potassium 4.6 mmol/L (3.5-5.1); Sodium 138 mmol/L (136-145)
[2022-03-25 08:02] VITALS: BP 143/84; TEMP 98.5
[2022-03-25] MEDS: cefTRIAXone\\ROCEPHIN 1 GM in Sodium Chloride 0.9% 100 ML IVPB SCH (08:25)
[2022-03-25] MEDS: Multivit, Therapeutic 1 TAB PO SCH (08:25)
[2022-03-25] MEDS: Aspirin Chewable 81 MG TAB PO SCH (08:25)
[2022-03-25] MEDS: Heparin 5,000 UNITS/ML VIAL SC SCH (08:26)
== END 2022-03-25 14:53 | disposition home or self-care (01) | DRG 683 ==
LOC: SUATTDRO 04:34 → ERS 04:34 → ERHOLD 08:27 → T4-A 09:17
PROVIDERS: ADMIT Internal Medicine; ATTEND Internal Medicine
DX: N17.9 Acute kidney failure, unspecified (principal); E87.1 Hypo-osmolality and hyponatremia; Z94.1 Heart transplant status; N39.0 Urinary tract infection, site not specified; E87.20 Acidosis, unspecified; E78.5 Hyperlipidemia, unspecified; I25.10 Atherosclerotic heart disease of native coronary artery without angina pectoris; I12.9 Hypertensive chronic kidney disease with stage 1 through stage 4 chronic kidney disease, or unspecified chronic kidney disease; N28.1 Cyst of kidney, acquired; N18.30 Chronic kidney disease, stage 3 unspecified; D63.1 Anemia in chronic kidney disease; E11.22 Type 2 diabetes mellitus with diabetic chronic kidney disease; Z20.822 Contact with and (suspected) exposure to COVID-19; Z90.710 Acquired absence of both cervix and uterus; Z95.1 Presence of aortocoronary bypass graft; Z79.82 Long term (current) use of aspirin; Z79.4 Long term (current) use of insulin; Z79.899 Other long term (current) drug therapy
CPT/HCPCS: 36415; 36416; 76770; 80048; 80053; 81003; 81015; 83605; 83880; 84443; 84484; 85025; 87040; 87086; 93005; 96374; J0696; J1644; J1815; J2405; J3490; J7050; U0003; U0005

== ENCOUNTER 2022-04-18 15:55 | Outpatient (CLI) | payer MEDICARE, MEDICAID | END 2022-04-18 15:56 | disposition home or self-care (01) | LOC: BICRAD 15:55 | PROVIDERS: ATTEND Nurse Practitioner Family | DX: K59.09 Other constipation (principal) | CPT/HCPCS: 74022 ==

== ENCOUNTER 2022-11-24 13:08 | Emergency (ER) | payer OTHER, MEDICAID ==
[2022-11-24 13:59] LABS: #Monocytes 0.4 thou/uL (0.11-0.59); #Neutrophils 5.1 thou/uL (1.40-6.50); %Basophils 0.6 % (0.0-1.0); %Eosinophils 0.6 % (0.0-10.0); %Monocytes 5.7 % (0.0-10.0); %Neutrophils 71.8 % (42.0-75.0); Hematocrit 34.1 % (36.0-47.0); Hemoglobin 10.7 g/dL (12.0-16.0); Mean Corpuscular HGB CONC 31.4 g/dL (32.0-36.0); Mean Corpuscular Hemoglobin 28.2 pg (27.0-31.0); Mean Platelet Volume 10.9 fL (7.4-10.4); Platelet Count 179 10x3/uL (130-400); RBC Distribution Width 14.2 % (11.5-14.5); Red Blood Cell (RBC) Count 3.79 mill/uL (4.20-5.40); White Blood Cell (WBC) Count 7.1 10x3/uL (4.8-10.8)
[2022-11-24 14:23] LABS: ALT (SGPT) 7 U/L (8-55); AST (SGOT) 14 U/L (5-34); Albumin 4.3 g/dL (3.4-4.8); Alkaline Phosphatase 79 U/L (40-110); Anion Gap 18 mmol/L (10-20); BUN (Urea Nitrogen) 66 mg/dL (9.8-20.1); Bilirubin, Total 0.5 mg/dL (0.2-1.2); Calc. Creatinine Clearance 0 mL/min (70-130); Calcium 10.1 mg/dL (7.8-10.44); Carbon Dioxide 22 mmol/L (23-31); Chloride 105 mmol/L (98-107); Estimated GFR 16; Globulin 3.7 g/dL (2.4-3.5); Glucose 186 mg/dL (83-110); Potassium 4.7 mmol/L (3.5-5.1); Sodium 140 mmol/L (136-145)
[2022-11-24 14:24] LABS: Bacteria/HPF None Seen HPF (None Seen); Bilirubin Negative (Negative); Blood, Urine Negative (Negative); CAUTI Indications for Culture Alt mental st,lethar; Clarity Clear (Clear); Glucose, Urine (Dipstick) Normal (Negative); Ketone, Urine Negative (Negative); Leukocyte 75 Leu/uL (Negative); Nitrite Negative (Negative); Protein, Urine (Dipstick) Negative (Neg-Trace); RBC/HPF 0-3 HPF (0-3); Specific Gravity, Urine 1.013 (1.002-1.036); Squamous Epithelial 0-3 HPF (0-3); Urobilinogen Normal mg/dL (Less than 2); pH, Urine 5.5 (5.0-9.0)
[2022-11-24 14:26] LABS: Urine Culture Reflex No No
== END 2022-11-24 15:23 | disposition home or self-care (01) ==
LOC: ERS 13:08
DX: R42 Dizziness and giddiness (principal); E11.9 Type 2 diabetes mellitus without complications; I10 Essential (primary) hypertension; E78.5 Hyperlipidemia, unspecified; Z79.82 Long term (current) use of aspirin; Z79.899 Other long term (current) drug therapy
CPT/HCPCS: 36415; 70450; 80053; 81001; 85025; 93005

== ENCOUNTER 2023-02-22 18:24 | Emergency (ER) | payer OTHER, MEDICAID | END 2023-02-22 20:12 | disposition home or self-care (01) | LOC: ERS 18:24 | DX: I10 Essential (primary) hypertension (principal); E11.9 Type 2 diabetes mellitus without complications; E78.5 Hyperlipidemia, unspecified; Z79.899 Other long term (current) drug therapy; Z79.82 Long term (current) use of aspirin | CPT/HCPCS: 99283 ==

== ENCOUNTER 2023-04-25 13:48 | Emergency (ER) | payer OTHER, MEDICAID ==
[2023-04-25] MEDS ORDERED: predniSONE 20 MG TAB ONE (14:48)
== END 2023-04-25 15:06 | disposition home or self-care (01) ==
LOC: ERS 13:48
DX: M25.461 Effusion, right knee (principal); M17.11 Unilateral primary osteoarthritis, right knee; E11.9 Type 2 diabetes mellitus without complications; I10 Essential (primary) hypertension; E78.5 Hyperlipidemia, unspecified; Z79.82 Long term (current) use of aspirin; Z79.899 Other long term (current) drug therapy
CPT/HCPCS: J7512

== ENCOUNTER 2023-09-05 14:09 | Outpatient (CLI) | payer OTHER | END 2023-09-05 14:10 | disposition home or self-care (01) | LOC: BICMRI 14:09 | PROVIDERS: ATTEND Nurse Practitioner Family | DX: M48.062 Spinal stenosis, lumbar region with neurogenic claudication (principal); M51.36 Other intervertebral disc degeneration, lumbar region; M48.07 Spinal stenosis, lumbosacral region | CPT/HCPCS: 72148 ==

== ENCOUNTER 2024-01-01 12:10 | Outpatient (CLI) | payer OTHER | END 2024-01-01 12:11 | disposition home or self-care (01) | LOC: BICRAD 12:10 | PROVIDERS: ATTEND Nurse Practitioner Family | DX: M25.551 Pain in right hip (principal); M17.11 Unilateral primary osteoarthritis, right knee ==

== ENCOUNTER 2024-02-09 09:13 | Outpatient (CLI) | payer OTHER | END 2024-02-09 09:14 | disposition home or self-care (01) | LOC: BICRAD 09:13 | PROVIDERS: ATTEND Nurse Practitioner Family | DX: M25.551 Pain in right hip (principal); M79.651 Pain in right thigh; Z91.81 History of falling ==

== ENCOUNTER 2024-03-15 10:57 | Emergency (ER) | payer OTHER ==
[2024-03-15] MEDS ORDERED: Ketorolac Tromethamine 30 MG (1 mL) VIAL ONE (12:21)
== END 2024-03-15 13:49 | disposition home or self-care (01) ==
LOC: ERS 10:57
DX: M47.896 Other spondylosis, lumbar region (principal); M25.551 Pain in right hip; E78.5 Hyperlipidemia, unspecified; I10 Essential (primary) hypertension; E11.9 Type 2 diabetes mellitus without complications; Z79.899 Other long term (current) drug therapy; W18.30XA Fall on same level, unspecified, initial encounter
CPT/HCPCS: 72170; 72192; 72220; 96372; 99283; J1885

== ENCOUNTER 2024-10-22 09:14 | Emergency (ER) | payer OTHER ==
[2024-10-22 10:33] LABS: #Basophils 0.04 10x3/uL (0.0-0.2); #Eosinophils 0.08 10x3/uL (0.0-0.7); #Monocytes 0.57 10x3/uL (0.11-0.59); #Neutrophils 4.49 10x3/uL (1.40-6.50); %Basophils 0.6 % (0.0-1.0); %Eosinophils 1.1 % (0.0-10.0); %Lymphocytes 25.6 % (21.0-51.0); %Monocytes 8.1 % (0.0-10.0); %Neutrophils 64.0 % (42.0-75.0); Hematocrit 34.1 % (36.0-47.0); Hemoglobin 10.3 g/dL (12.0-16.0); Mean Corpuscular Hemoglobin 27.5 pg (27.0-31.0); Mean Corpuscular Volume 91.2 fL (78.0-98.0); Platelet Count 200 10x3/uL (130-400); Red Blood Cell (RBC) Count 3.74 mill/uL (4.20-5.40); White Blood Cell (WBC) Count 7.02 10x3/uL (4.8-10.8)
[2024-10-22 10:58] LABS: ALT (SGPT) 7 U/L (Less than 34); AST (SGOT) 15 U/L (11-34); Albumin 3.5 g/dL (3.1-4.5); Alkaline Phosphatase 68 U/L (40-110); Anion Gap 13 mmol/L (10-20); BUN (Urea Nitrogen) 29 mg/dL (9.8-20.1); Bilirubin, Total 0.4 mg/dL (0.3-1.2); Calc. Creatinine Clearance 0 mL/min (70-130); Calcium 10.1 mg/dL (7.8-10.44); Carbon Dioxide 21 mmol/L (23-31); Chloride 111 mmol/L (98-107); Globulin 4.1 g/dL (2.4-3.5); Glucose 180 mg/dL (83-110); Lipase 19 U/L (8-78); Potassium 4.7 mmol/L (3.5-5.1); Sodium 140 mmol/L (136-145)
[2024-10-22 12:11] LABS: Bacteria/HPF None Seen HPF (None Seen); CAUTI Indications for Culture Pelvic or flank pain; Glucose, Urine (Dipstick) Greater than 1000 mg/dL (Negative); Leukocyte Negative Leu/uL (Negative); Protein, Urine (Dipstick) Negative (Neg-Trace); RBC/HPF 0-3 HPF (0-3); Specific Gravity, Urine 1.014 (1.002-1.036); WBC/HPF 0-3 HPF (0-3)
[2024-10-22 12:12] LABS: Urine Culture Reflex No No
== END 2024-10-22 14:38 | disposition home or self-care (01) ==
LOC: ERS 09:14
DX: R10.9 Unspecified abdominal pain (principal); I10 Essential (primary) hypertension; E11.9 Type 2 diabetes mellitus without complications
CPT/HCPCS: 74176; 76705; 80053; 81001; 83690; 85025